=== PATIENT | female | born 1955 | race Caucasian/White ===

== ENCOUNTER 2016-03-18 09:19 | Emergency (ER) | payer BC ==
[~2016-03-18] VITALS: Ht 157.5 cm; Wt 63.6 kg
[2016-03-18 09:20] VITALS: BP 122/76; TEMP 99.7
[2016-03-18] MEDS ORDERED: CHANTIX 1MG1 MG PO (09:24)
[2016-03-18 10:59] VITALS: PULSE 79
== END 2016-03-18 10:59 | disposition home or self-care (01) ==
LOC: COL.ER 09:19
DX: S86.812A Strain of other muscle(s) and tendon(s) at lower leg level, left leg, initial encounter (principal); W10.8XXA Fall (on) (from) other stairs and steps, initial encounter
CPT/HCPCS: L1830

== ENCOUNTER → 2017-05-13 | Outpatient (CLI) | payer BC ==
[~2017-05-13] MED LIST: CHANTIX 1MG1 MG PO
== END ==
LOC: MC.RAD 12:49
DX: Z12.31 Encounter for screening mammogram for malignant neoplasm of breast (principal); M85.80 Other specified disorders of bone density and structure, unspecified site

== ENCOUNTER → 2023-08-15 | Outpatient (CLI) | payer BC | LOC: MC.RAD 07:45 | DX: Z12.31 Encounter for screening mammogram for malignant neoplasm of breast (principal) ==